=== PATIENT | male | born 1960 | race Hispanic/Latino ===

== ENCOUNTER 2021-04-01 20:30 | Emergency (ER) | payer SELFPAY ==
--- NOTE | 2021-04-01 21:08 | Emergency Department Report ---
HPI - General Time Seen by Provider: 04/01/21 21:03 - HPI HPI: Room 21 Per EMS the patient is a 61-year-old male presenting with a chief complaint initially of difficulty breathing. EMS states they arrived on scene to find the patient sitting on a couch complaining of shortness of breath. The patient had reportedly received a Goldberg Covid vaccine 6 days ago and things have been "getting worse" since then. The patient complained of shortness of breath and when EMS found him he was seen to be cyanotic and satting at approximately 87% on room air. Patient was brought to the ambulance where he shortly went unresponsive prior to arrival to the ED. CPR was initiated by EMS and upon arrival to the ED the patient was intubated by myself using a glidescope and 7.5 ET tube. ACLS protocols were continued but there was no return of spontaneous circulation ED Past Medical Hx - Past Medical History Hx Hypertension: Yes - Surgical History Past Surgical History?: No - Family History Family history: no significant - Social History Smoking Status: Unknown if ever smoked - Medications Home Medications: Home Medications Medication Instructions Recorded Confirmed Last Taken Type Aspirin [Aspirin BABY CHEW TAB] 81 mg PO QDAY 02/28/20 02/28/20 02/27/20 History Atorvastatin Calcium [Lipitor] 80 mg PO QDAY 02/28/20 02/28/20 02/27/20 History Albuterol Mdi (or & Nicu Only) 2 puff IH QID PRN #8.5 gram 03/01/20 Unknown Rx [ProAir HFA Inhaler] levoFLOXacin [Levaquin] 750 mg PO QDAY #5 tablet 03/01/20 Unknown Rx Metoprolol [Lopressor TAB] 25 mg PO BID #60 tablet 03/02/20 Unknown Rx ED Review of Systems ROS: Stated complaint: CARDIAC ARREST Other details as noted in HPI Comment: Unobtainable due to pts medical conditions Physical Exam - Physical Exam Physical Exam: GENERAL: The patient is well-developed well-nourished male lying on stretcher receiving chest compressions from EMS being bagged via BVM. [] HEENT: Normocephalic. Atraumatic. Extraocular motions are intact. Patient has moist mucous membranes. NECK: Supple. Trachea midline CHEST/LUNGS: Agonal respirations. Breath sounds equal bilaterally with bagging after intubation by myself HEART/CARDIOVASCULAR: No heart sounds ABDOMEN: Abdomen is soft, nontender. Patient has normal bowel sounds. There is no abdominal distention. SKIN: There is no rash. There is no edema. There is no diaphoresis. NEURO: GCS 3 T MUSCULOSKELETAL: There is no evidence of acute injury. - Intubation Time Out Performed: No Laryngoscope: fiberoptic video scope Size: 3 Assist Device Used: fiberoptic device ET Tube Size: 7.5 Tube Secured Depth (cm): 24 Tube Secured Location: lips Tube Placement Confirmation: visualized tube passing t, equal breath sounds bilat, no breath sounds over epi Patient Tolerated Procedure: no complications Intubation Complications: none ED Medical Decision Making - Differential Diagnosis Cardiac arrest, respiratory arrest Critical care attestation.: If time is entered above; I have spent that time in minutes in the direct care of this critically ill patient, excluding procedure time. ED Disposition Clinical Impression: Respiratory arrest, Cardiac arrest Disposition: DC-20 Is pt being admited?: No Does the pt Need Aspirin: No Condition: Stable Time of Disposition: 21:04 (Patient )
[2021-04-01] MEDS ORDERED: EPINEPHrine 1 MG/10 ML SYRINGE ONE (21:49)
[2021-04-02] MEDS ORDERED: SODIUM BICARB 8.4% 50 MEQ/50 ML SYRINGE IV ONE (01:00)
[2021-04-02] MEDS ORDERED: DOPamine/D5W 800 MG/250 ML DRIP IV ONE (01:00)
[2021-04-02] MEDS ORDERED: EPINEPHrine 1 MG/10 ML SYRINGE ONE (01:00)
== END 2021-04-02 03:15 ==
LOC: ED 20:30
DX: I46.9 Cardiac arrest, cause unspecified (principal); I10 Essential (primary) hypertension; Z79.899 Other long term (current) drug therapy
CPT/HCPCS: 82962; 99285; J0171; J1265